=== PATIENT | female | born 1970 | race Caucasian/White ===

== ENCOUNTER 2017-03-20 12:14 | Emergency (ER) | payer MEDICARE, OTHER ==
[~2017-03-20] VITALS: Ht 175.3 cm; Wt 110.0 kg
[~2017-03-20 12:14] MED LIST: BACL10TA PO; DULO1CAP2 PO; MELO7.5T4 PO; SERO100T PO
[2017-03-20 12:17] VITALS: BP 137/86; PULSE 92; RESP 24; TEMP 98.7; O2SAT 98
[2017-03-20] MEDS ORDERED: SERO100T PO (13:19)
[2017-03-20] MEDS ORDERED: LYRI150C PO (13:19)
[2017-03-20] MEDS ORDERED: PERC10TA27 PO (13:19)
[2017-03-20] MEDS ORDERED: FENT25DI T-DERMAL (13:19)
--- NOTE | 2017-03-20 13:26 | PD ---
HPI Chief Complaint: Pain: Acute or Chronic Time Seen by Provider: 12:30 Travel History International Travel<30 days: No Contact w/Intl Traveler<30days: No Traveled to known affect area: No History of Present Illness HPI Patient comes in complaining of worsening bilateral lower extremity pain over the past several days. Patient denies any change or bowel or bladder. Denies any radiation of pain. Patient's pain is a burning sensation in her bilateral lower extremities is worse palpation. Patient states she has feels that she's got more movement back and her lower extremities over the past several days. Denies any fevers or recent falls. Denies any chest pain, shortness of breath, or headaches. PFSH Past Medical History Arthritis: No Asthma: No Autoimmune Disease: No Bipolar Disorder: Yes Anxiety: Yes Depression: Yes Heart Rhythm Problems: No Cancer: No Cardiovascular Problems: No High Cholesterol: No Chemotherapy: No Chest Pain: No Congestive Heart Failure: No COPD: No Cerebrovascular Accident: Yes (states she is paralyzed from waist down) Diabetes: No Diminished Hearing: No Endocrine: No Gastrointestinal Disorders: No GERD: No Genitourinary: No Hiatal Hernia: No Immune Disorder: No Kidney Stones: No Musculoskeletal: Yes Neurologic: No Psychiatric: Yes (previous diagnoses of schizophrenia and bipolar disorder) Reproductive: No (LMP: 12/17/13) Migraines: No Radiation Therapy: No Renal Failure: No Schizophrenia: Yes Seizures: No Sickle Cell Disease: No Sleep Apnea: No Thyroid Disease: No Ulcer: No ?: Not LMP: 2 weeks : 3 Para: 4 Ovarian Cysts: Yes (REMOVED 89,92,97) Past Surgical History Abdominal Surgery: No AICD: No Arteriovenous Shunt: No Body Medical Devices: dorsal column stimulator Cardiac Surgery: No Section: Yes (X3) Ear Surgery: No Endocrine Surgery: No Eye Surgery: No Genitourinary Surgery: No Gynecologic Surgery: Yes (3 ovarian surgeries, 3 C-sections) Insulin Pump: No Joint Replacement: No Neurologic Surgery: Yes (9 Lumbar Surgeries) Oral Surgery: Yes (Tonsillectomy & Adenoidectomy) Pacemaker: No Thoracic Surgery: No Tonsillectomy: Yes Social History Alcohol Use: Yes (OCC.) Tobacco Use: No Substance Use: Yes (Marijuana- 3 weeks ago) Allergies-Medications (Allergen,Severity, Reaction): Coded Allergies: Bee Sting (Verified Allergy, Severe, Anaphylaxis, 03/20/17) Iodinated Contrast Media (Verified Allergy, Severe, Anaphylaxis, 03/20/17) Iodine (Verified Allergy, Severe, Anaphylaxis, 03/20/17) Uncoded Allergies: MRI precautions (Adverse Reaction, Unknown, 07/05/16) Reported Meds & Prescriptions Reported Meds & Active Scripts Active Reported Seroquel (Quetiapine Fumarate) 100 Mg Tab 100 Mg PO HS Fentanyl Patch 72 HR (Fentanyl) 25 Mcg/Hr Patch 25 Mcg T-DERMAL EVERY 3 DAYS Lyrica (Pregabalin) 150 Mg Cap 150 Mg PO TID Percocet (Oxycodone-Acetaminophen) 10-325 mg Tab 1 Tab PO Q4H PRN Baclofen 10 Mg Tab 20 Mg PO TID PRN Review of Systems Except as stated in HPI: all other systems reviewed are Neg Physical Exam Narrative GENERAL: Well-developed, overly nourished, in no acute distress, and non-ill appearing. SKIN: Focused skin assessment warm and dry. HEAD: Atraumatic. Normocephalic. EYES: Pupils equal and round. EOMI. No scleral icterus. No injection or drainage. ENT: No nasal bleeding or discharge. Mucous membranes pink and moist. NECK: Trachea midline. Supple. No nuclear rigidity. CARDIOVASCULAR: Dorsal pulses 2+ intact bilaterally. No pedal edema. RESPIRATORY: No accessory muscle use. No respiratory distress. GASTROINTESTINAL: Abdomen soft, non-tender, nondistended. Hepatic and splenic margins not palpable. No pulsatile mass. MUSCULOSKELETAL: No obvious deformities. No clubbing. No cyanosis. No edema. Decreased range of motion bilateral lower extremities which is chronic. NEUROLOGICAL: Awake and alert. No obvious cranial nerve deficits. Motor grossly within normal limits. Normal speech. PSYCHIATRIC: Appropriate mood and affect; insight and judgment normal.l range of motion. Data Data Last Documented VS Vital Signs Date Time Temp Pulse Resp B/P Pulse Ox O2 Delivery O2 Flow Rate FiO2 03/20/17 12:17 98.7 92 24 137/86 98 Room Air Orders Orphenadrine Inj (Norflex Inj) (03/20/17 13:30) Ketorolac Inj (Toradol Inj) (03/20/17 13:30) MDM Medical Decision Making Medical Screen Exam Complete: Yes Emergency Medical Condition: No Differential Diagnosis Acute on chronic pain, worsening pain, psychosomatic pain, other Narrative Course Patient reports she cannot get MRI or CT studies, thus limiting evaluation in the ER. Patient states she has not contacted her pain management doctor nor her neurologist regarding this. Patient in no obvious distress upon re-evaluation. I discussed patient with Dr. Andino, who saw and evaluated the patient who recommended contacting patient's pain management doctor to see if the patient can get appointment in the next day or 2 as well as given a dose of Toradol and Norflex. Any questions /concerns in reference to patient diagnosis/condition discussed and clarified prior to patient's discharge. Reinforced sheer importance of close follow up with patient's primary physician or primary care clinic. Instructed patient to return to ED immediately, if symptoms return/worsen. Pt showed understanding of above instructions. Further instructions and recommendations were detailed in discharge paperwork. Pt ambulated without difficulty out of ED at discharge. Physician Communication Physician Communication [id number] I spoke with patient's pain management doctor Dr. Maynard in [place], who just saw the patient recently and states his office will be able to work the patient in for an appointment. States to have patient call his office to be elevated today or tomorrow., Diagnosis Primary Impression: Lower extremity pain, bilateral Patient Instructions: General Instructions Additional Instructions: Follow-up with your pain management doctor the next day or 2 call for appointment. Follow up with your neurologist as soon as possible for reevaluation. Return to the emergency department if symptoms get worse. Disposition: 01 DISCHARGE HOME Condition: Stable Georges Collins March 20, 2017 13:26 Georges Collins March 20, 2017 13:26
[2017-03-20] MEDS ORDERED: ORPHENADRINE INJ 60 MG/2 ML AMP IM ONE (13:30)
[2017-03-20] MEDS ORDERED: KETOROLAC TROMETHAMINE 60 MG/2 ML (IM) VIAL IM ONE (13:30)
== END 2017-03-20 13:50 | disposition home or self-care (01) ==
LOC: NEPD 12:14
DX: M79.604 Pain in right leg (principal); M79.605 Pain in left leg; Z87.39 Personal history of other diseases of the musculoskeletal system and connective tissue; Z86.79 Personal history of other diseases of the circulatory system; Z86.59 Personal history of other mental and behavioral disorders
CPT/HCPCS: 99283